=== PATIENT | female | born 1985 | race Caucasian/White ===

== ENCOUNTER → 2018-10-07 | Outpatient (CLI) | payer OTHER, SELFPAY ==
--- NOTE | 2018-10-07 12:05 | RAD_ITS ---
STUDY: X-RAY - CERVICAL SPINE REASON FOR EXAM: Female, 33 years old. Left sided cervical radiculopathy. TECHNIQUE: 6 view(s) of the cervical spine were obtained. COMPARISON: None FINDINGS: Normal anterior atlantoaxial articulation. Normal odontoid process. There is straightening of the normal cervical lordosis. Normal vertebral bodies and endplates. Normal disc space heights. Normal visualized intervertebral neuroforamina. The soft tissue structures are unremarkable. RAD/Cerv Spine 4 or 5 Views IMPRESSION: 1. Straightening of the cervical spine which could be positional or due to muscle spasm. 2. No evidence of bony spinal canal or neural foramina stenosis. Electronically Signed: Adrian Goncalves MD at 12:02 EDT Tel , Service support ,
== END | disposition home or self-care (01) ==
LOC: MTRAD 12:02
PROVIDERS: Family Provider Family Medicine; PCP Family Medicine; Referring Provider Family Medicine; Visit Provider Family Medicine
DX: M54.12 Radiculopathy, cervical region (principal)
CPT/HCPCS: 72050

== ENCOUNTER 2018-10-12 00:01 | Emergency (ER) | payer OTHER, SELFPAY ==
[2018-10-12 00:02] VITALS: BP 150/89; PULSE 118; PULSE 126; RESP 15; RESP 21; TEMP 36.6; O2SAT 100; O2SAT 98; BMI 21.9
--- NOTE | 2018-10-12 00:06 | ED.RN ---
RN CALLED FOR EKG, NO OLD EKGS IN MUSE
--- NOTE | 2018-10-12 00:17 | EKG12_ITS ---
Test Reason : PALPS Blood Pressure : / mmHG Vent. Rate : 117 BPM Atrial Rate : 117 BPM P-R Int : 122 ms QRS Dur : 084 ms QT Int : 318 ms P-R-T Axes : 063 070 043 degrees QTc Int : 443 ms Sinus tachycardia Nonspecific ST abnormality Abnormal ECG Confirmed by PEGGY RAE ([id number]), legal editor COCO SIMMONS ([id number] on 10/17/2018 3:29:15 PM Referred By: ALYSSA Confirmed By:PEGGY RAE
[2018-10-12 00:25] LABS: Absolute Lymphocyte Count 1.39 X10^3/ul (0.83-4.51); Absolute Neutrophil Count 9.6 X10^3/uL (2.0-7.7); Basophil# 0.01 X10^3/uL; Basophil% 0.1 % (0-1); Eosinophil# 0.01 X10^3/uL; Eosinophils% 0.1 % (0-5); Hematocrit 42.7 % (37-47); Hemoglobin 14.4 g/dl (12.0-15.0); Lymphocyte # 1.39 X10^3/ul (4.0); Lymphocyte % 12.4 % (19-41); Mean Corp Hgb Conc 33.7 g/gl (32-36); Mean Corpuscular Volume 86.1 fL (81-99); Mean Platelet Vol. 8.6 fl (6.2-12.0); Monocyte# 0.15 X10^3/uL; Monocyte% 1.3 % (0-10); Neutrophil # 9.61 X10^3/uL (2.7-7.7); Neutrophil % 85.9 % (47-70); POSITIVE COUNT NO; POSITIVE DIFFERENTIAL NO; POSITIVE MORPHOLOGY NO; Platelet Count 355 K/mm3 (150-450); RBC Distribution Width CV 12.7 % (11.6-14.6); RBC Distribution Width SD 39.1 fl (35.1-43.9); Red Blood Count 4.96 M/mm3 (4.2-5.4); White Blood Count 11.2 K/mm3 (4.4-11.0)
[2018-10-12 00:35] LABS: D-Dimer Quantitative (DVT/PE) < 0.27 FEU/ug/m (0.27-0.49)
[2018-10-12 00:45] LABS: Anion Gap 8 (5-15); BUN 15 mg/dL (7-18); BUN/Creat Ratio 16.7 RATIO (10-20); Chloride 106 mmol/L (98-107); EST Glomerular Filtration Rate 77 mL/min (>60); Est Glom Filt Rate - Afr Amer 93 mL/min (>60); Estimated Creatinine Clearance 74.23 ml/min; Glucose 196 mg/dL (74-106); Potassium 3.7 mmol/L (3.5-5.1); Sodium Level 137 mmol/L (136-145); Thyroid Stim Hormone (TSH) 0.54 uIU/mL (0.358-3.74)
[2018-10-12] MEDS: 0.9% Normal Saline 1,000 ML 999 ML IV (00:45)
--- NOTE | 2018-10-12 00:45 | RAD_ITS ---
HISTORY: palpitations EXAM:XR Chest 2 Views COMPARISON: None FINDINGS: EKG leads in place. Normal heart size. Lung volumes are prominent. No vascular congestion, pleural effusion, or acute pulmonary infiltration. No pneumothorax. The bony thorax appears intact. RAD/Chest PA and Lateral IMPRESSION: No acute cardiopulmonary disease. at 0110 Reported and signed by: Art Buchanan MD Electronically Signed: Art Buchanan, at 1:09 EDT Tel , Service support ,
[2018-10-12 01:18] VITALS: RESP 16
--- NOTE | 2018-10-12 01:19 | ED.DCSUM_ITS ---
- ER Visit Summary Date of Service: 10/12/18 Chief Complaint: Palpitations History of Present Illness: The patient is a 33 F who presents with palpitations. It began abruptly about 20 to 30 minutes ago. She felt like her heart was racing. She also felt dizzy as if she may pass out. Symptoms began while at rest just while having a conversation with a neighbor. She denies vomiting or diarrhea. She had normal p.o. intake. She was recently seen due to some pain and numbness in the left arm that they thought may be related to her neck and she was started on prednisone. She is also been having some leg pain for a few months. No recent travel or surgery. No history of DVT or pulmonary embolism. No known coagulopathy. Physical Examination: Afebrile initial heart rate 118 vitals otherwise unremarkable Moist mucous membranes Heart regular tachycardia Lungs clear Abdomen soft Extremities nontender without edema Alert Test Results: EKG shows sinus rhythm at a rate of 117. Labs unremarkable including negative troponin, negative d-dimer, normal TSH. Two-view chest x-ray normal. Emergency Department Course and Treatment: Patient asked if symptoms could be related to prednisone. This is possible if it was making her feel anxious. On reevaluation however she is resting comfortably no distress with a heart rate of 80. She will discontinue the prednisone. She was advised to return for new or worsening symptoms and otherwise to follow-up as an outpatient. Patient comfortable with this plan, all questions answered bedside, patient discharged. Treatment Plan: [] Disposition: Discharge Impression: Palpitations This note was generated with [employer] dictation software. It may contain incorrect words, spelling, and punctuation that were not noted in review of the chart prior to signing ED Disposition - Plan for ED Patient: Referrals: Cristiano Nichols MD [Primary Care Provider] -
--- NOTE | 2018-10-12 01:19 | ED.DEP ---
ED Disposition - Plan for ED Patient: Instructions: ED Palpitations Referrals: Crsitiano Nichols MD [Primary Care Provider] -
[2018-10-12 01:34] VITALS: BP 110/56; PULSE 84; RESP 16; O2SAT 98
== END 2018-10-12 01:34 | disposition home or self-care (01) ==
PROVIDERS: Emergency Provider Emergency Medicine; Family Provider Family Medicine; PCP Family Medicine
DX: R00.2 Palpitations (principal); R55 Syncope and collapse; Z72.0 Tobacco use
CPT/HCPCS: 71046; 80048; 84443; 84484; 85025; 85379; 93005; 96360; 99285; J7030; A4216

== ENCOUNTER → 2019-01-13 | Outpatient (CLI) | payer OTHER, SELFPAY ==
[2019-01-13 12:35] LABS: Absolute Neutrophil Count 2.6 X10^3/uL (2.0-7.7); Basophil# 0.07 X10^3/uL; Basophil% 1.5 % (0-1); Eosinophil# 0.12 X10^3/uL; Eosinophils% 2.6 % (0-5); Hematocrit 43.8 % (37-47); Hemoglobin 14.4 g/dL (12.0-15.0); Lymphocyte % 32.1 % (19-41); Mean Corp Hgb Conc 32.9 g/dL (32-36); Mean Corpuscular Volume 88.3 fL (81-99); Mean Platelet Vol. 8.8 fl (6.2-12.0); Monocyte# 0.35 X10^3/uL; Monocyte% 7.5 % (0-10); NRBC Flagged by Analyzer 0 % (0-5); Neutrophil # 2.62 X10^3/uL (2.7-7.7); Neutrophil % 56.1 % (47-70); Platelet Count 311 K/mm3 (150-450); RBC Distribution Width CV 12.1 % (11.6-14.6); RBC Distribution Width SD 39.2 fl (35.1-43.9); Red Blood Count 4.96 M/mm3 (4.2-5.4); White Blood Count 4.7 K/mm3 (4.4-11.0)
[2019-01-13 13:06] LABS: Anion Gap 7 (5-15); BUN 13 mg/dL (7-18); BUN/Creat Ratio 15.1 RATIO (10-20); Calcium,Total 9.3 mg/dL (8.5-10.1); Chloride 109 mmol/L (98-107); Cholesterol 211 mg/dL (200); Creatinine, Serum 0.86 mg/dL (0.55-1.02); EST Glomerular Filtration Rate 81 mL/min (>60); Est Glom Filt Rate - Afr Amer 98 mL/min (>60); Free T3 3.2 pg/mL (2.18-3.98); Glucose 93 mg/dL (74-106); High Density Lipoprotein 76 mg/dL; Potassium 3.9 mmol/L (3.5-5.1); Sodium Level 140 mmol/L (136-145); Thyroid Stim Hormone (TSH) 1.02 uIU/mL (0.358-3.74); Triglycerides 51 mg/dL; Very Low Density Lipoprotein 10 mg/dL (5-40)
== END | disposition home or self-care (01) ==
LOC: MFPLAB 10:42
PROVIDERS: Family Provider Family Medicine; PCP Family Medicine; Referring Provider Family Medicine; Visit Provider Family Medicine
DX: R00.2 Palpitations (principal)
CPT/HCPCS: 36415; 80048; 80061; 84443; 84481; 85025

== ENCOUNTER → 2019-02-28 09:38 | Outpatient (CLI) | payer OTHER, SELFPAY ==
[2019-02-14 14:56] VITALS: BMI 22.3
--- NOTE | 2019-02-28 09:41 | ECHOD_ITS ---
Reason For Study: ARRHYTHMIA Procedure This was a 2D Doppler, Color Flow transthoracic echocardiogram. The exam was of adequate technical quality. Exam performed in department. Left Ventricle Normal LV size. Left ventricular systolic function is normal. The estimated ejection fraction is 55 %. No evidence for diastolic dysfunction. No regional wall motion abnormalities noted. Right Ventricle Normal RV size. Normal systolic function. Atria Normal left atrium. Normal right atrium. No doppler evidence for ASD. Mitral Valve There is no mitral annular calcification. Anterior leaflet diffuse mitral valve thickening. Mild (1+) eccentric mitral valve insufficiency. Tricuspid Valve Normal tricuspid valve. Trivial tricuspid valve insufficiency. Right ventricular systolic pressure estimated to be 24 mmHg. Aortic Valve Trisinus/trileaflet aortic valve. Normal aortic valve. Pulmonic Valve The pulmonic valve is not well visualized. Moderate (2+) pulmonic valve insufficiency. Great Vessels Normal sized aortic root. Pericardium/Pleural No pericardial effusion. MMode/2D Measurements & Calculations LVIDd: 4.3 cm IVSd: 0.81 cm Ao root diam: 2.9 cm LVIDs: 3.0 cm LVPWd: 0.72 cm RVDd: 3.1 cm FS: 29.6 % LAV(MOD-bp): 34.9 ml LA A4 area: 14.3 cm2 LA dimension(2D): 3.0 cm LAV(MOD-bp) Indexed: 21.6 ml/m2 LAV(MOD-sp2): 35.6 ml LAV(MOD-sp4): 32.5 ml RA A4 area: 12.0 cm2 Time Measurements MV dec time: 0.24 sec Doppler Measurements & Calculations MV E max gavin: 78.0 cm/sec Lat Peak E' Gavin: 17.5 cm/sec Med Peak E' Gavin: 11.0 cm/sec MV A max gavin: 39.7 cm/sec E/E' lat: 4.5 E/E' med: 7.1 MV E/A: 2.0 Ao V2 max: 111.6 cm/sec LV V1 max: 86.6 cm/sec PA V2 max: 81.7 cm/sec Ao max P.0 mmHg LV V1 max P.0 mmHg PI end-d gavin: 108.0 cm/sec TR max gavin: 226.9 cm/sec TR max P.1 mmHg Interpretation Summary Left ventricular systolic function is normal. The estimated ejection fraction is 55 %. Anterior leaflet diffuse mitral valve thickening. Mild (1+) eccentric mitral valve insufficiency. Trivial tricuspid valve insufficiency. Moderate (2+) pulmonic valve insufficiency. Right ventricular systolic pressure estimated to be 24 mmHg. No evidence for diastolic dysfunction. Ordering Physician: Rahat Pina Referring Physician: KERON MAK Performed By: Elma Meade, JONHCS, RVT
== END ==
PROVIDERS: Family Provider Family Medicine; PCP Family Medicine; Referring Provider Internal Medicine Cardiovascular Disease; Visit Provider Internal Medicine Cardiovascular Disease
DX: R00.2 Palpitations (principal); R00.0 Tachycardia, unspecified
CPT/HCPCS: 93306

== ENCOUNTER → 2019-11-27 09:28 | Outpatient (CLI) | payer OTHER, SELFPAY ==
[2019-11-16 11:18] VITALS: BMI 22.1
[2019-11-27 12:19] LABS: ALB/GLOB Ratio 1.1 RATIO (0.9-2.4); AST(SGOT) 15 U/L (15-37); Alanine Aminotransfer ALT/SGPT 22 U/L (13-56); Albumin, Serum 4.1 g/dL (3.2-5.0); Alkaline Phosphatase 74 U/L (45-117); Anion Gap 4 (5-15); BUN 16 mg/dL (7-18); BUN/Creat Ratio 20.6 RATIO (10-20); Calcium,Total 9.5 mg/dL (8.5-10.1); Chloride 107 mmol/L (98-107); Creatinine, Serum 0.78 mg/dL (0.55-1.02); EST Glomerular Filtration Rate 91 mL/min (>60); Est Glom Filt Rate - Afr Amer 110 mL/min (>60); Globulin 3.7 g/dL (2.2-4.2); Glucose 90 mg/dL (74-106); Magnesium 2.5 mg/dL (1.6-2.6); Protein, Total 7.8 g/dL (6.4-8.2); Sodium Level 139 mmol/L (136-145)
[2019-12-02 03:06] LABS: Alternaria alternata <0.10 kU/L (Class 0); Aspergillus fumigatus <0.10 kU/L (Class 0); Bahia Grass 0.21 kU/L (Class 0/I); Bermuda Grass 0.24 kU/L (Class 0/I); Bluegrass, Kentucky 0.24 kU/L (Class 0/I); Cedar, Mountain 0.22 kU/L (Class 0/I); Cladosporium herbarum <0.10 kU/L (Class 0); Cockroach, American <0.10 kU/L (Class 0); Dog Epithelia 0.64 kU/L (Class II); Elm, American White 0.23 kU/L (Class 0/I); Hazelnut Tree 0.16 kU/L (Class 0/I); Hickory, White 0.28 kU/L (Class 0/I); Johnson Grass 0.27 kU/L (Class 0/I); Maple/Box Elder 0.24 kU/L (Class 0/I); Mucor racemosus 0.11 kU/L (Class 0/I); Mugwort 0.18 kU/L (Class 0/I); Mulberry, White 0.17 kU/L (Class 0/I); Oak, White 0.25 kU/L (Class 0/I); Penicillium chrysogen <0.10 kU/L (Class 0); Plantain, English 0.24 kU/L (Class 0/I); Ragweed, Short/Common 0.23 kU/L (Class 0/I); Sheep Sorrel(Dock) 0.26 kU/L (Class 0/I); Stemphylium herbarum <0.10 kU/L (Class 0); Sweet Gum 0.16 kU/L (Class 0/I); Sycamore, American 0.25 kU/L (Class 0/I)
[2019-12-02 13:05] LABS: Nettle 0.16 kU/L (Class 0/I)
== END ==
PROVIDERS: Family Medicine; PCP Family Medicine; Visit Provider Family Medicine
DX: I47.1 Supraventricular tachycardia (principal); J30.9 Allergic rhinitis, unspecified
CPT/HCPCS: 36415; 80053; 83735; 86003

== ENCOUNTER → 2020-01-08 15:22 | Outpatient (CLI) | payer OTHER, SELFPAY ==
[2019-11-16 11:18] VITALS: BMI 22.1
[2020-01-11 17:49] LABS: HPV Reflexed? NOT INDICATED
== END ==
PROVIDERS: PCP Family Medicine; Visit Provider Family Medicine
DX: Z01.419 Encounter for gynecological examination (general) (routine) without abnormal findings (principal)
CPT/HCPCS: 88175; G0145

== ENCOUNTER → 2020-02-26 11:51 | Outpatient (CLI) | payer OTHER, SELFPAY ==
[2019-11-16 11:18] VITALS: BMI 22.1
== END ==
PROVIDERS: PCP Family Medicine; Visit Provider Family Medicine
DX: J20.9 Acute bronchitis, unspecified (principal)
CPT/HCPCS: 87633; 87635; U0003

== ENCOUNTER → 2020-12-09 16:46 | Outpatient (CLI) | payer OTHER, SELFPAY ==
[2020-11-18 13:43] VITALS: BMI 23.6
[2020-12-09 17:34] LABS: Absolute Lymphocyte Count 1.78 X10^3/uL (0.83-4.51); Basophil# 0.03 X10^3/uL; Basophil% 0.5 % (0-1); Eosinophil# 0.16 X10^3/uL; Eosinophils% 2.5 % (0-5); Hemoglobin 14.3 g/dL (12.0-15.0); Lymphocyte # 1.78 X10^3/ul (0.83-4.51); Lymphocyte % 28.1 % (19-41); Mean Corp Hgb Conc 32.5 g/dL (32-36); Mean Corpuscular Hgb 28.9 pg (27.0-32.0); Mean Corpuscular Volume 89.1 fL (81-99); Mean Platelet Vol. 8.8 fl (6.2-12.0); Monocyte# 0.39 X10^3/uL; Monocyte% 6.2 % (0-10); NRBC Flagged by Analyzer 0 % (0-5); Neutrophil # 3.96 X10^3/uL (2.7-7.7); Neutrophil % 62.5 % (47-70); Platelet Count 308 K/mm3 (150-450); RBC Distribution Width CV 11.9 % (11.6-14.6); RBC Distribution Width SD 39.1 fl (35.1-43.9); Red Blood Count 4.94 M/mm3 (4.2-5.4); White Blood Count 6.3 K/mm3 (4.4-11.0)
[2020-12-09 18:40] LABS: ALB/GLOB Ratio 1.2 RATIO (0.9-2.4); AST(SGOT) 18 U/L (15-37); Alanine Aminotransfer ALT/SGPT 19 U/L (13-56); Albumin, Serum 4.2 g/dL (3.2-5.0); Alkaline Phosphatase 82 U/L (45-117); Anion Gap 5 (5-15); BUN 17 mg/dL (7-18); Calcium,Total 9.4 mg/dL (8.5-10.1); Chloride 104 mmol/L (98-107); Creatinine, Serum 0.81 mg/dL (0.55-1.02); EST Glomerular Filtration Rate 86 mL/min (>60); Est Glom Filt Rate - Afr Amer 104 mL/min (>60); Globulin 3.5 g/dL (2.2-4.2); Glucose 85 mg/dL (74-106); Magnesium 2.1 mg/dL (1.6-2.6); Potassium 3.8 mmol/L (3.5-5.1); Protein, Total 7.7 g/dL (6.4-8.2); Sodium Level 137 mmol/L (136-145); Thyroid Stim Hormone (TSH) 0.79 uIU/mL (0.358-3.74)
== END ==
LOC: MFPLAB 16:50
PROVIDERS: PCP Family Medicine; Referring Provider Family Medicine; Visit Provider Family Medicine
DX: G47.62 Sleep related leg cramps (principal)
CPT/HCPCS: 36415; 80053; 82306; 83735; 84443; 85025

== ENCOUNTER 2021-02-24 23:41 | Emergency (ER) | payer OTHER, SELFPAY ==
[2021-02-24 23:41] VITALS: BP 115/80; PULSE 83; RESP 18; TEMP 36.6; O2SAT 98; BMI 22.3
--- NOTE | 2021-02-25 00:12 | EDS_ITS ---
HPI History of Present Illness Chief Complaint: Allergic Reaction Informant: patient Onset/Context/Timing Onset: Yesterday Context: Gradual Onset Current Severity: Mild Maximum Severity: Mild Narrative Narrative: Patient presents secondary to allergic reaction. Around dinnertime last evening she took a dose of omeprazole. She had been prescribed this approximate 6 months ago but only takes it as needed for reflux. Shortly after taking the medication last evening she broke out in hives complaining of itching. She reports some slight chest tightness. No throat tightness or difficulty swallowing. She does not take anything for her reaction prior to coming to the emergency room. Patient was seen just after midnight. [facility] Medical History (Updated 02/25/21 @ 01:[address] Radha Shanks MD) Palpitation PSVT (paroxysmal supraventricular tachycardia) Tachycardia Home Medications metoprolol tartrate 25 mg tablet 25 mg PO BID #180 tab 11/18/20 [Rx Last Taken Unknown] omeprazole 40 mg PO DAILY 02/25/21 [History Last Taken Unknown] prednisone 40 mg PO DAILY 4 Days #8 tab 02/25/21 [Rx Last Taken Unknown] Allergy/AdvReac Type Severity Reaction Status Date / Time No Known Allergies Allergy Verified 02/24/21 23:43 Family History Father CAD (coronary artery disease) Myocardial infarction Social History Smoking Status: Current every day smoker tobacco type: cigarettes alcohol intake: current details: rare substance use type: does not use caffeine: No ROS ROS ED Constitutional Constitutional ED: Denies chills or fever(s) Eyes Eyes: Denies change in vision ENT ENT ED: Denies sore throat Cardiovascular Cardiovascular: Denies chest pain Respiratory/Chest Respiratory/Chest: Reports other Details: Chest tightness ; Denies cough or dyspnea Gastrointestinal Gastrointestinal: Denies abdominal pain, diarrhea, nausea or vomiting Genitourinary Genitourinary ED: Denies dysuria Musculoskeletal Musculoskeletal: Denies back pain Integumentary Reports rash Neurologic Neurologic: Denies headache(s) or weakness Psychiatric Psychiatric: Denies anxiety or depression Allergic/Immunologic Allergic/Immunologic ED: Reports urticaria EXAM Physical Exam Narrative Exam Narrative: Patient speaking full sentences and in no acute distress. Const Vital Signs: 02/24/21 23:41 02/25/21 00:32 Temperature 97.9 F Temperature Source Temporal Pulse Rate 83 61 Respiratory Rate 18 18 Blood Pressure 115/80 Blood Pressure Mean 91 Pulse Ox 98 Oxygen Delivery Method Room Air Positive well nourished and well developed General Appearance ED: well developed Eyes PERRL and EOMs intact bilaterally Chest Wall inspection of chest normal and palpation of chest normal Resp normal respiratory effort and clear to auscultation bilaterally Cardio regular rate and regular rhythm GI normal to inspection, nondistended, normoactive bowel sounds Neuro oriented x3 Sensorium / Orientation: alert Skin Skin Narrative: Urticarial lesions noted on the extremities and abdomen. MDM MDM MDM Narrative Medical decision making narrative: Patient was given Benadryl, Pepcid, Solu- Medrol. She was observed for 1 hour. Treatment and Re-Evaluation Comments:: On repeat evaluations patient reports feeling significantly improved. Hives have significantly diminished. She will take Benadryl [id number] and I will write her for 4 additional days of prednisone. Discharge Plan Triage Chief Complaint: Allergic Reaction ED Provider: Radha Shanks Dx/Rx/DC Orders Clinical Impression: Urticaria Instructions: ED Hives (Adult) Prescriptions: New prednisone 20 mg tablet 40 mg PO DAILY 4 Days Qty: 8 RF: 0 No Action metoprolol tartrate 25 mg tablet 25 mg PO BID Qty: 180 RF: 4 omeprazole 40 mg Capsule,Delayed Release(Dr/Ec) 40 mg PO DAILY RF: 0 Primary Care Provider: Cole Ochoa Referrals: Cole Ochoa MD [Primary Care Provider] - 3-5 Days if not improving Disposition Disposition: Home, Self Care
[2021-02-25] MEDS: Famotidine 200 MG/20 ML MDV 20 MG in 0.9% Normal Saline (Pres. free 8 ML 300 MG IV (00:24)
[2021-02-25] MEDS: DiphenhydrAMINE 50 MG/ML Syringe 25 MG IV (00:26)
[2021-02-25] MEDS: MethylPREDNISolone 125 MG/2 ML Vial 100 MG IV (00:26)
[2021-02-25 00:32] VITALS: PULSE 61; RESP 18
[2021-02-25 01:21] VITALS: PULSE 54; RESP 17; O2SAT 98
== END 2021-02-25 01:27 | disposition home or self-care (01) ==
PROVIDERS: Emergency Provider Emergency Medicine; PCP Family Medicine
DX: L50.9 Urticaria, unspecified (principal); I47.1 Supraventricular tachycardia; Z79.899 Other long term (current) drug therapy; F17.210 Nicotine dependence, cigarettes, uncomplicated
CPT/HCPCS: 96365; 96375; 99283; A4216; J3490

== ENCOUNTER → 2021-04-11 | Outpatient (CLI) | payer OTHER, SELFPAY | END | disposition home or self-care (01) | PROVIDERS: PCP Family Medicine; Visit Provider Family Medicine | DX: Z20.822 Contact with and (suspected) exposure to COVID-19 (principal) | CPT/HCPCS: 87635; U0005; U0003 ==

== ENCOUNTER 2021-06-27 10:00 | Outpatient (RCR) | payer OTHER, SELFPAY ==
--- NOTE | 2021-05-14 12:31 | HP.OTEVAL ---
Patient's Visit Information LESA JONES is a 35 year old F, referred to Occupational Therapy by SADAF Bryant, with a diagnosis of right lateral epicondylitis. Date of Evaluation: 05/14/21 Occupational Therapist: Diana Hadley, OTR/Lorraine, CHT - Subjective This 35 year old female was seen for OT eval with dx of right lateral epi- pt states pain started about 8 weeks ago- pt states she is doing forearm stretches and using a counter force brace and using heat as 20 min 2x a day-. pt employed at the [employer] pt works in the [employer] services on the [employer]- she works 40 hours a week. pt states she would like to return to her PLOF without pain - Pain right elbow 0 Pain Intensity Range: 6, 7 - ROM Elbow: right +5/150 left 0/150 Forearm: right/left WNL right supination painful - Strength Shoulder: right 4/5 left 5/5 Help Desk Rep: right 50# left 60# Lateral Pinch: right 14# left 18# Tripod Pinch: right 4# with pain left 8# Strength Comments: right with elbow straight 20# with pain left 50# - Sensation Sensation Comments: denies - Special Tests Lat Epiconylitis - as named: positive - Quick DASH-Disab of Arm,Shoulder& Hand Quick DASH Score: 42.8550 - Goals Goal:: pt will demo a increase in right supervisor type disk quality control by 20# or greater to increase pts ind. with work tasks by d/c. pt will demo increase in MMT of right shoulder all plans to 4+/5 to return pt to pLOF by d.c. Goal:: pt will report no pain greater than 2/10 with use of right UE with ADLS and work tasks by d.c Goal:: pt will demo understanding of work ergo to limit stress on tendons by d/c Goal:: pt will demo understanding of using counterforce brace daily to limit stress on tendon by d/c - Rehabilitation General Assessment: pt demo with positive lat. epi symptoms limiting use of her right UE for IADLs and work tasks. pt would benefit from skilled OT services 2-3x week for 4-6 weeks to return pt to her PLOF. Today therapist ed, pt on dx, ergo- and protective positioning with use of right UE. Rehabilitation Potential: Good - Anticipated Interventions A/AAROM/PROM, Strengthening, Triggerpoint Release, Orthoses, Joint Protection/Energy Conservation, Ergonomic Education, Education re assistive Equipment, Education re Diagnosis - Visit Plan Frequency: 2-3x /Week Duration: 6 Weeks TEXT: Thank you for the opportunity to evaluate your patient. For Medicare and Medicare HMO plans, please review the plan of care and approve it. It will need to be FAXED BACK to us at [phone] for Medicare purposes. Please let me know if there are questions or concerns regarding this plan of care. Physician Signature: Date:
--- NOTE | 2021-10-13 11:43 | HP.OT.NRP ---
LESA JONES was seen in my office for initial evaluation on 05/14/21. The following Plan of Care was established for this patient: Initial Frequency: 2-3x /Week Initial Duration: 6 Weeks Plan: cont with lateral epi protocol Anticipated Interventions: A/AAROM/PROM, Strengthening, Triggerpoint Release, Orthoses, Joint Protection/Energy Conservation, Ergonomic Education, Education re assistive Equipment, Education re Diagnosis This patient was last seen in our office 06/27/21. Pertinent comments regarding their Occupational therapy will appear below: pt was seen for 6 OT session- and was making gains with her lat. epi- but at this time due to time lapse in services pt d/c. At this point I will be discontinuing this patient from occupational therapy. I would be happy to see this patient again in the future if found appropriate by the physician. Thank you! Diana Hadley, OTR/L, CHT
== END 2021-06-27 19:00 | disposition home or self-care (01) ==
LOC: OT 10:00
PROVIDERS: PCP Family Medicine; Referring Provider Physician Assistant Surgical; Visit Provider Physician Assistant Surgical
DX: M77.11 Lateral epicondylitis, right elbow (principal)
CPT/HCPCS: 97035; 97110; 97140; 97166

== ENCOUNTER 2021-07-24 18:13 | Outpatient (CLI) | payer OTHER, SELFPAY | END 2021-07-24 23:59 | disposition home or self-care (01) | PROVIDERS: PCP Family Medicine; Visit Provider Family Medicine | DX: Z20.822 Contact with and (suspected) exposure to COVID-19 (principal) | CPT/HCPCS: 87635; U0003; U0005 ==

== ENCOUNTER → 2023-03-02 | Outpatient (CLI) | payer OTHER, SELFPAY ==
--- NOTE | 2023-03-02 13:50 | ECHOD_ITS ---
Reason For Study: SVT Procedure This was a 2D Doppler, Color Flow transthoracic echocardiogram. Exam performed in department. Left Ventricle Normal size and thickness. The left ventricular ejection fraction is 65 %. Normal diastololic function. Right Ventricle Normal right ventricle. Atria The left and right atria are normal. Mitral Valve Mild (1+) posteriorly directed mitral valve insufficiency. Tricuspid Valve Trivial tricuspid valve insufficiency. Normal pulmonary artery pressure. Aortic Valve Trisinus/trileaflet aortic valve. Pulmonic Valve The pulmonic valve is not well visualized. Trivial pulmonic valve insufficiency. Great Vessels Normal sized aortic root. Pericardium/Pleural No pericardial effusion. MMode/2D Measurements & Calculations LVIDd: 4.6 cm IVSd: 0.89 cm Ao root diam: 2.9 cm LVIDs: 3.2 cm LVPWd: 0.60 cm LA dimension: 3.0 cm RVDd: 3.4 cm FS: 30.3 % LAV(MOD-bp): 36.9 ml LVAd ap4: 27.0 cm2 SV(MOD-sp4): 44.3 ml LAV(MOD-bp) Indexed: 23.0 ml/m2 LVLd ap4: 7.9 cm LAV(MOD-sp2): 32.8 ml EDV(MOD-sp4): 75.5 ml LAV(MOD-sp4): 36.1 ml EDV(sp4-el): 78.3 ml LVAs ap4: 15.8 cm2 LVLs ap4: 6.8 cm ESV(MOD-sp4): 31.2 ml ESV(sp4-el): 31.0 ml EF(MOD-sp4): 58.6 % EF(sp4-el): 60.4 % SV(sp4-el): 47.3 ml LA A4 area: 15.4 cm2 RA A4 area: 10.6 cm2 TAPSE: 1.7 cm Time Measurements MV dec time: 0.24 sec Doppler Measurements & Calculations MV E max gavin: 78.9 cm/sec Lat Peak E' Gavin: 21.4 cm/sec Med Peak E' Gavin: 14.6 cm/sec MV A max gavin: 53.0 cm/sec E/E' lat: 3.7 E/E' med: 5.4 MV E/A: 1.5 MV V2 max: 90.5 cm/sec MV P1/2t max gavin: 90.5 cm/sec Ao V2 max: 117.7 cm/sec MV max P.3 mmHg MV P1/2t: 87.9 msec Ao max P.5 mmHg MV V2 mean: 53.4 cm/sec MV dec slope: 301.8 cm/sec2 Ao V2 mean: 86.0 cm/sec MV mean P.3 mmHg Ao mean P.3 mmHg MV V2 VTI: 25.0 cm MVA(P1/2t): 2.5 cm2 Ao V2 VTI: 27.2 cm AV (velocity ratio): 0.76 LV V1 max: 92.3 cm/sec PA V2 max: 75.3 cm/sec TR max gavin: 195.4 cm/sec LV V1 max P.4 mmHg TR max P.3 mmHg LV V1 mean P.9 mmHg LV V1 mean: 64.9 cm/sec LV V1 VTI: 20.7 cm ECHO/Echo Complete Interpretation Summary The left ventricular ejection fraction is 65 %. Mild (1+) posteriorly directed mitral valve insufficiency. Ordering Physician: Julián Goldberg Referring Physician: Cole Ochoa Performed By: Lex Pickering RCS
== END | disposition home or self-care (01) ==
LOC: CVS 13:49
PROVIDERS: PCP Family Medicine; Referring Provider Internal Medicine Cardiovascular Disease; Visit Provider Internal Medicine Cardiovascular Disease
DX: I47.10 Supraventricular tachycardia, unspecified (principal); R00.0 Tachycardia, unspecified; R00.2 Palpitations
CPT/HCPCS: 93306

== ENCOUNTER 2023-11-24 21:52 | Emergency (ER) | payer OTHER, SELFPAY ==
[2023-11-24 21:54] VITALS: BP 87/63; PULSE 128; RESP 20; TEMP 37.6; O2SAT 98; BMI 22.6
[2023-11-24 22:06] VITALS: BP 107/49; PULSE 104; RESP 16; TEMP 37.5; O2SAT 98
--- NOTE | 2023-11-24 22:38 | EX.ED.DYSGE1 ---
HPI History of Present Illness Chief Complaint: Fever Informant: patient Onset/Context/Timing Onset: Today Narrative Narrative: Patient present secondary to fever and bodyaches. She states that she was at work this morning when she started feeling fatigued. She left work and went to urgent care for rapid strep test as she was recently exposed. This returned negative. After getting home she developed fever and generalized body aches. She has not had significant cough or congestion. She does report urinary frequency. [facility] Medical History Mitral regurgitation Fatigue Lateral epicondylitis of right elbow PSVT (paroxysmal supraventricular tachycardia) Tachycardia Palpitation Home Medications ?Medication ?Instructions ?Recorded ?Last Taken ?Type cholecalciferol (vitamin D3) 10 10 mcg PO DAILY 08/06/21 Unknown History mcg (400 unit) capsule metoprolol tartrate 25 mg tablet 12.5 mg (1/2 x 25 mg) PO BID #180 03/30/23 Unknown Rx tabs Allergy/AdvReac Type Severity Reaction Status Date / Time omeprazole Allergy Severe rash, Verified 11/24/23 21:54 difficulty breathing, chest pain Family History Father CAD (coronary artery disease) Myocardial infarction Social History Smoking Status: Current every day smoker tobacco type: cigarettes alcohol intake: current details: rare substance use type: does not use caffeine: No ROS ROS ED Constitutional Constitutional ED: Reports chills and fever(s) Eyes Eyes: Denies change in vision or discharge from eye(s) ENT ENT ED: Reports sore throat; Denies discharge from eye(s) or rhinorrhea Cardiovascular Cardiovascular: Denies chest pain or palpitations Respiratory/Chest Respiratory/Chest: Denies cough or dyspnea Gastrointestinal Gastrointestinal: Denies abdominal pain, nausea or vomiting Genitourinary Genitourinary ED: Reports urinary frequency; Denies dysuria Musculoskeletal Musculoskeletal: Reports myalgias; Denies back pain Integumentary Denies Abrasions or rash Neurologic Neurologic: Denies headache(s) or weakness Psychiatric Psychiatric: Denies anxiety or depression Allergic/Immunologic Allergic/Immunologic ED: Denies lip swelling or urticaria EXAM Physical Exam Const Vital Signs: 11/24/23 21:54 11/24/23 22:06 11/24/23 23:06 Temperature 99.7 F H 99.5 F H 99.5 F H Temperature Source Temporal Temporal Tympanic Pulse Rate 128 H 104 H 98 Respiratory Rate 20 H 16 16 Respiratory Effort Respiratory Pattern Blood Pressure 87/63 L 107/49 L 93/45 L Blood Pressure Mean 71 68 61 Pulse Ox 98 98 96 Oxygen Delivery Method Room Air Room Air Room Air 11/24/23 23:07 11/24/23 23:53 11/25/23 00:00 Temperature 102.4 F H 102.4 F H Temperature Source Oral Axillary Pulse Rate 110 H 108 H Respiratory Rate 16 23 H Respiratory Effort Normal Respiratory Pattern Normal Blood Pressure 94/47 L 92/45 L Blood Pressure Mean 62 60 Pulse Ox 98 95 Oxygen Delivery Method Room Air Room Air Positive well nourished and well developed General Appearance ED: well developed HEENT Reports moist mucous membranes Eyes EOMs intact bilaterally Chest Wall inspection of chest normal and palpation of chest normal Resp normal respiratory effort and clear to auscultation bilaterally Cardio regular rate and regular rhythm GI non-tender Palpation: soft Extremity normal to inspection Neuro oriented x3 and no sensory deficits noted Motor Exam: strength 5/5 throughout Psych mental status grossly normal Skin no rashes or lesions noted MDM MDM MDM Narrative Medical decision making narrative: IV line initiated. Patient given IV fluids and Tylenol. Labwork obtained to evaluate for leukocytosis, anemia, and electrolyte derangement. Chest x-ray obtained to evaluate for acute lung pathology, cardiac size, or mediastinal abnormality. Swab for COVID, influenza, and RSV will be obtained. Urinalysis obtained to evaluate for infection/hematuria. Blood and urine cultures will be obtained. History & Record Review Discussion w/independent historian: Patient and Family Lab Data Attestation: I reviewed the patient's lab results. Labs: Laboratory Results - last 24 hr 11/24/23 11/24/23 22:09 22:55 WBC 4.1 L RBC 4.65 Hgb 13.5 Hct 40.8 MCV 87.7 MCH 29.0 MCHC 33.1 RDW Std Deviation 38.5 RDW Coeff of Paz 12.0 Plt Count 265 MPV 8.8 Immature Gran % (Auto) 0.200 Neut % (Auto) 74.1 H Lymph % (Auto) 10.4 L Sargent % (Auto) 10.9 H Eos % (Auto) 3.9 Baso % (Auto) 0.5 Absolute Neuts (auto) 3.1 Absolute Lymphs (auto) 0.43 L Nucleated RBC % 0 Sodium 136 Potassium 3.9 Chloride 105 Carbon Dioxide 25.0 Anion Gap 6 BUN 16 Creatinine 0.92 Estim Creat Clear Calc 69.26 Est GFR (MDRD) Af Amer 88 Est GFR (MDRD) Non-Af 72 BUN/Creatinine Ratio 17.3 Glucose 105 Calcium 9.4 Urine Color Yellow Urine Clarity Clear Urine pH 6.0 Ur Specific Husser 1.010 Urine Protein Negative Urine Glucose (UA) Normal Urine Ketones Negative Urine Occult Blood Negative Urine Nitrite Negative Urine Bilirubin Negative Urine Urobilinogen Normal Ur Leukocyte Esterase Negative Urine RBC 0 SEEN Urine WBC 0 SEEN Ur Squamous Epith Cells 0 SEEN Urine Bacteria 0 SEEN Urine Mucus 0 SEEN Urine Test Negative Radiography Chest X-Ray - ED: 1 View, Read by ED Physician, Normal, Heart, Lungs and Mediastinum Diagnostic Testing: Clinical Impression(s) from Imaging Studies Chest X-Ray 11/24/23 23:00 IMPRESSION: No radiographic evidence of acute cardiopulmonary disease. Electronically Signed: Tai Horn MD at 23:27 EDT , Treatment and Re-Evaluation :: Patient was initially given Tylenol but repeat oral temperature to go up to 1-2.4. She is then ordered a dose of ibuprofen. CBC reveals low white count at 4.1 with 74% neutrophils. Chemistry studies unremarkable. Urinalysis reveals no evidence of infection. Portable chest x-ray per my interpretation reveals no evidence of infiltrate. Radiology interpretation reviewed and agrees. Swab for RSV and flu is negative. Patient's COVID test does return positive. On repeat evaluation patient comfortable and nontoxic-appearing. We did discuss her test results. I will write her a work note for 5 days. Family members were warned to watch for symptoms. Return instructions provided. Discharge Plan Triage Chief Complaint: Fever ED Provider: Radha Shanks Dx/Rx/DC Orders Clinical Impression: COVID-19 Instructions: Coronavirus Disease 2019 (COVID-19): Overview, Coronavirus Disease 2019 (COVID-19): Caring for Yourself or Others Prescriptions: No Action cholecalciferol (vitamin D3) 10 mcg (400 unit) capsule 10 mcg PO DAILY metoprolol tartrate 25 mg tablet 12.5 mg PO BID Qty: 180 3RF Stand Alone Forms: ED Work / School Excuse Primary Care Provider: Cole Ochoa Referrals: Cole Ochoa MD [Primary Care Provider] - 1 Week Print Language: Macanese Disposition Disposition: Home, Self Care
[2023-11-24] MEDS: 0.9% Normal Saline (1000mL) 1,000 ML 1000 ML IV (22:47)
[2023-11-24] MEDS: Acetaminophen 500 MG Tablet 1000 MG PO (22:47)
--- NOTE | 2023-11-24 23:00 | RAD_ITS ---
EXAM: XR CHEST, 1 VIEW CLINICAL INDICATION: fever TECHNIQUE: Frontal view of the chest. COMPARISON: 10/12/2018. FINDINGS: LUNGS AND PLEURAL SPACES: Unremarkable. No consolidation or edema. No pneumothorax. No effusion. HEART: Unremarkable. Cardiac silhouette not enlarged. MEDIASTINUM: Central airways and mediastinal contour are unremarkable. BONES/JOINTS: Unremarkable. No acute fracture. SOFT TISSUES: Unremarkable. RAD/Chest 1 View (Portable) IMPRESSION: No radiographic evidence of acute cardiopulmonary disease. Electronically Signed: Tai Horn MD at 23:27 EDT ,
[2023-11-24 23:06] VITALS: BP 93/45; PULSE 98; RESP 16; TEMP 37.5; O2SAT 96
[2023-11-24 23:08] LABS: Bacteria 0 SEEN /hpf (None Seen); Mucous, Urine 0 SEEN /hpf (<or=2+); Red Blood Cells-Urine 0 SEEN /hpf (0-5); Squamous Epithelial Cells - UA 0 SEEN /hpf (5-10); White Blood Cells 0 SEEN /hpf (0-5)
[2023-11-24 23:11] LABS: Absolute Lymphocyte Count 0.43 X10^3/uL (0.83-4.51); Absolute Neutrophil Count 3.1 X10^3/uL (2.0-7.7); Basophil# 0.02 X10^3/uL; Basophil% 0.5 % (0-1); Eosinophil# 0.16 X10^3/uL; Eosinophils% 3.9 % (0-5); Hematocrit 40.8 % (37-47); Hemoglobin 13.5 g/dL (12.0-15.0); Lymphocyte # 0.43 X10^3/ul (0.83-4.51); Lymphocyte % 10.4 % (19-41); Mean Corp Hgb Conc 33.1 g/dL (32-36); Mean Corpuscular Volume 87.7 fL (81-99); Mean Platelet Vol. 8.8 fl (6.2-12.0); Monocyte# 0.45 X10^3/uL; Monocyte% 10.9 % (0-10); NRBC Flagged by Analyzer 0 % (0-5); Neutrophil # 3.06 X10^3/uL (2.7-7.7); Neutrophil % 74.1 % (47-70); POSITIVE DIFFERENTIAL YES; Platelet Count 265 K/mm3 (150-450); RBC Distribution Width SD 38.5 fl (35.1-43.9); Red Blood Count 4.65 M/mm3 (4.2-5.4); White Blood Count 4.1 K/mm3 (4.4-11.0)
[2023-11-24 23:13] LABS: Color, Urine Yellow (Yellow); Glucose, Dipstick Normal (Normal); Ketone-Dipstick Negative (Negative); Leukocyte Esterase-Dipstick Negative /ul (Negative); Nitrite-Dipstick Negative (Negative); Occult Blood-Urine Negative /ul (Negative); Protein-Dipstick Negative (Negative); Urine Bilirubin Dipstick Negative (Negative); Urine Clarity Clear (Clear); Urine Urobilinogen Normal (Normal)
[2023-11-24 23:19] LABS: Internal QC Validated? YES +Cl - CLEAR BKGD
[2023-11-24 23:20] LABS: Pregnancy, Urine Negative Negative
[2023-11-24 23:29] LABS: Anion Gap 6 (5-15); BUN 16 mg/dL (7-18); BUN/Creat Ratio 17.3 RATIO (10-20); Calcium,Total 9.4 mg/dL (8.5-10.1); Chloride 105 mmol/L (98-107); Creatinine, Serum 0.92 mg/dL (0.55-1.02); EST Glomerular Filtration Rate 72 mL/min (>60); Est Glom Filt Rate - Afr Amer 88 mL/min (>60); Estimated Creatinine Clearance 69.26 ml/min; Glucose 105 mg/dL (74-106); Potassium 3.9 mmol/L (3.5-5.1); Sodium Level 136 mmol/L (136-145)
[2023-11-24 23:53] VITALS: BP 94/47; PULSE 110; RESP 16; TEMP 39.1; O2SAT 98
[2023-11-25] VITALS: BP 92/45; PULSE 108; RESP 23; TEMP 39.1; O2SAT 95
[2023-11-25] MEDS: Ibuprofen 200 MG Tablet 400 MG PO (00:03)
[2023-11-25] MEDS: 0.9% Normal Saline (1000mL) 1,000 ML 150 ML IV (00:03)
[2023-11-25 00:32] VITALS: BP 95/46; PULSE 96; RESP 18; TEMP 36.8; O2SAT 99
== END 2023-11-25 00:35 | disposition home or self-care (01) ==
PROVIDERS: Emergency Provider Emergency Medicine; PCP Family Medicine; Visit Provider Emergency Medicine
DX: U07.1 COVID-19 (principal); F17.210 Nicotine dependence, cigarettes, uncomplicated; I47.10 Supraventricular tachycardia, unspecified; Z79.899 Other long term (current) drug therapy
CPT/HCPCS: 71045; 80048; 81001; 81025; 85025; 87040; 87077; 87086; 87088; 87186; 87631; 96360; 96361; 99285; J7030; A4216

== ENCOUNTER 2024-03-21 10:33 | Day surgery (SDC) | payer OTHER, SELFPAY ==
[2024-03-20 08:39] VITALS: BMI 22.3
[2024-03-20 10:40] LABS: hCG Titer Quant., Serum < 1 mIU/mL (1-3)
--- NOTE | 2024-03-21 10:34 | HP_ITS ---
HPI HPI History of Present Illness Details: The patient is here for follow-up visit. He still has occasional palpitations. She did see EP at [place]. According to her, they were supposed to get back to her but never did. Intake Vital Signs 11/23/2420:54 02/21/2408:49 Height 5 ft 3.5 in 5 ft 3.5 in Weight: 130 lb BMI 22.6 BP 91/62 Blood Pressure Location Lt brachial Position Sitting Respiration 16 Pulse 78 Pulse Source NIBP Intake Visit Reasons: 6 M FU [employer] Required: No Accompanied by: Self Is patient in pain?: No Allergies omeprazole Allergy (Severe, Verified 02/21/24 14:59) rash, difficulty breathing, chest pain Medications ?Medication ?Instructions ?Recorded ?Confirmed ?Type cholecalciferol (vitamin D3) 10 10 mcg PO DAILY 08/06/21 02/21/24 History mcg (400 unit) capsule metoprolol tartrate 25 mg tablet 12.5 mg (1/2 x 25 mg) PO BID #180 03/30/23 02/21/24 Rx tabs Ejection fraction %: 55 Have you fallen in the past year?: No PFSH Medical History Fatigue Lateral epicondylitis of right elbow Mitral regurgitation Palpitation PSVT (paroxysmal supraventricular tachycardia) Tachycardia Family History Father CAD (coronary artery disease) Myocardial infarction Social History Smoking Status: Current every day smoker tobacco type: cigarettes alcohol intake: current details: rare substance use type: does not use caffeine: No ROS Const Const: Negative for fatigue, weakness or headache(s) ENT ENT: Negative for headache(s), dizziness, Nosebleed/epistaxis or balance problems Cardio Chest Pain: No Palpitations: No Edema: None Muscle aches with walking: None Resp Respiratory: Negative for SOB with activity, SOB at rest or SOB orthopnea\SOB lying down GI GI: Positive for heartburn; Negative nausea or vomiting Musc Musc: Negative for muscle aches/ myalgia, muscle weakness, joint pain or balance problems Neuro Neuro: Negative for dizziness, lightheadedness, near syncope, syncope, headache(s) or weakness Endo Endo: Negative for fatigue Cardiology Exam Const Appearance: comfortable and no acute distress Nutritional Appearance: well nourished Neck Neck: no JVD Carotids: Negative bruit Chest Auscultation: Bilateral: Clear to Auscultation Cardio Rate: regular rate Rhythm: regular rhythm Heart sounds: S1 normal and S2 normal Neuro General: patient alert, patient awake and patient oriented x3 Extremities Lower Extremity Edema: None: Bilateral Supplemental Info Supplemental Information Transthoracic echocardiogram: 02-28-19 Interpretation Summary Left ventricular systolic function is normal. The estimated ejection fraction is 55 %. Anterior leaflet diffuse mitral valve thickening. Mild (1+) eccentric mitral valve insufficiency. Trivial tricuspid valve insufficiency. Moderate (2+) pulmonic valve insufficiency. Right ventricular systolic pressure estimated to be 24 mmHg. No evidence for diastolic dysfunction. Echocardiogram 02/2023: The left ventricular ejection fraction is 65 %. Mild (1+) posteriorly directed mitral valve insufficiency. 14 DAY EVENT MONITOR 02/23/23-03/08/23: AVG HR was 77 BPM MIN HR was 49 BPM on 02/27 at 2226 MAX HR was 160 BPM on 02/24 at 0605 NSR with Rare PVCs/PACs Assessment and Plan Assessment and Plan (1) PSVT (paroxysmal supraventricular tachycardia): Status: Chronic Plan: Still symptomatic. Unable to escalate metoprolol dose on account of borderline blood pressure. Refer to EP here at our office for possible ablation. (2) Palpitation: Status: Chronic Plan: See #1 above. (3) Mitral regurgitation: Status: Chronic Plan: Mild mitral valve regurgitation. Periodic echo and clinical surveillance. Plan Details Follow Up: 6 Months Coding Level of Care Code Off vis,est,level 3 Diagnoses PSVT (paroxysmal supraventricular tachycardia) I47.1 Palpitation R00.2 Mitral regurgitation I34.0 Coding Level of Care Code Off vis,est,level 3 Diagnoses PSVT (paroxysmal supraventricular tachycardia) I47.1 Palpitation R00.2 Mitral regurgitation I34.0 Clinical Quality Measures Falls Risk Screening/Assistive Devices Have you fallen in the past year?: No Cardiac Ejection fraction %: 55 MTDD
[2024-03-21 11:02] LABS: Hematocrit 44.7 % (37-47); Hemoglobin 14.2 g/dL (12.0-15.0); Mean Corp Hgb Conc 31.8 g/dL (32-36); Mean Corpuscular Hgb 28.5 pg (27.0-32.0); Mean Corpuscular Volume 89.8 fL (81-99); Platelet Count 309 K/mm3 (150-450); RBC Distribution Width CV 11.9 % (11.6-14.6); RBC Distribution Width SD 39.3 fl (35.1-43.9); Red Blood Count 4.98 M/mm3 (4.2-5.4); White Blood Count 4.4 K/mm3 (4.4-11.0)
[2024-03-21 11:07] LABS: Prothrombin Time (Protime)PT. 12.8 SECONDS (11.7-14.9)
[2024-03-21 11:11] LABS: Anion Gap 4 (5-15); BUN 13 mg/dL (7-18); BUN/Creat Ratio 16.7 RATIO (10-20); Calcium,Total 9.6 mg/dL (8.5-10.1); Chloride 109 mmol/L (98-107); Creatinine, Serum 0.78 mg/dL (0.55-1.02); EST Glomerular Filtration Rate 88 mL/min (>60); Est Glom Filt Rate - Afr Amer 107 mL/min (>60); Estimated Creatinine Clearance 85.27 ml/min; Glucose 104 mg/dL (74-106); Potassium 4.4 mmol/L (3.5-5.1); Sodium Level 140 mmol/L (136-145)
--- NOTE | 2024-03-21 14:38 | ELECTROSTU_ITS ---
Electrophysiology Report Electrophysiology Report Manasa Khan is a age year old 38 who has a past medical history of palpitations, who presented to the [facility] lab for further evaluation regarding SVT. Procedure Summary * Patient prepped and draped in sterile fashion. * Right groin infiltrated with lidocaine. * Right femoral access obtained x3 with ultrasound guidance. * Sheaths inserted into femoral veins via Seldinger technique. * Catheters inserted through right groin. * EPS results listed below in conclusions. * Isuprel testing performed. * Sheaths pulled in lab and hemostasis achieved per protocol. Findings: BASELINE ISUPREL SCL: 864ms SCL: 583ms AH: 76ms AH: 54ms HV: 40ms HV: 40ms Maximum SNRT: 1140ms CSNRT: 276ms AVBCL: 370ms AVBCL: 240ms VABCL: 500ms VABCL: 230ms Decremental Conduction? Y Decremental Conduction? Y Concentric: Y Concentric: Y AP BCL: N/A AVN ERP 300ms @ 600ms AVN ERP <200ms @ 400ms VAERP 360ms @ 700ms VAERP <200ms @ 370ms BASELINE ISUPREL Inducible Tachycardia: N Inducible Tachycardia: N Conclusions 1. Baseline rhythm is sinus rhythm. 2. Normal sinus node function (longest SNRT 1140ms). 3. Normal AV node function, normal infranodal conduction (HV= 40ms). 4. No evidence of accessory pathway. 5. Evidence of dual AV veronika physiology 6. VA conduction present and is decremental.? 7. No inducible SVT at baseline or on isuprel. 8. She developed a brief episode of AF during AOD. Recommendations 1. No inducible tachycardia. Her 30 day monitor shows brief episodes of SVT, most consistent with an atrial tachycardia. She also has PAC and PVCs. Her EPS showed dual AVN physiology, but no inducible tachycardia, and clinical events do not appear consistent with AVNRT, therefore ablation not performed. 2. Bedrest for 3 hours 3. The patient can continue to follow-up with Dr. Goldberg. 4. Continue current dose of metoprolol. 5. If symptoms worsen, a repeat monitor can be performed.
[2024-03-21 15:50] VITALS: BP 101/63; PULSE 67; RESP 16; TEMP 36.7; O2SAT 96
[2024-03-21 16:00] VITALS: BP 96/72; PULSE 72; RESP 16; O2SAT 95
[2024-03-21 16:35] VITALS: BP 100/58; PULSE 82; RESP 16; O2SAT 99
[2024-03-21 17:05] VITALS: BP 108/63; PULSE 84; RESP 16; TEMP 36.6; O2SAT 100
[2024-03-21 17:35] VITALS: BP 108/77; PULSE 78; RESP 16; O2SAT 100
--- NOTE | 2024-03-21 17:50 | NURSING ---
Post bedrest ambulated to and back to bed. Right groin site soft, no signs of bleeding or hematoma noted.
== END 2024-03-21 18:21 | disposition home or self-care (01) ==
LOC: CLSP 10:35 → PCU 18:08
PROVIDERS: Internal Medicine Cardiovascular Disease; Physician Assistant Medical; PCP Family Medicine; Referring Provider Internal Medicine; Visit Provider Internal Medicine
DX: I47.10 Supraventricular tachycardia, unspecified (principal); F17.210 Nicotine dependence, cigarettes, uncomplicated; I34.0 Nonrheumatic mitral (valve) insufficiency; R00.2 Palpitations
CPT/HCPCS: 36415; 76937; 80048; 84702; 85027; 85610; 93620; 93623; 99152; 99153; C1730; J7040; C1894